=== PATIENT | female | born 1995 | race Caucasian/White ===

== ENCOUNTER 2018-03-02 09:30 | Emergency (ER) | payer MEDICAID ==
[~2018-03-02] VITALS: Ht 152.4 cm; Wt 69.0 kg
[2018-03-02 11:33] LABS: CLARITY URINE CLEAR (CLEAR); COLOR URINE ORANGE (YELLOW); KETONES URINE NEGATIVE (NEGATIVE); LEUKOCYTE ESTERASE URINE TRACE (NEGATIVE); NITRITE URINE NEGATIVE (NEGATIVE); OCCULT BLOOD URINE 3+ (NEGATIVE); PH URINE 6.5 (4.5-8.0); PROTEIN URINE TRACE (NEGATIVE); SPECIFIC GRAVITY URINE 1.017 (1.005-1.030); UROBILINOGEN URINE 0.2 E.U./dL (0.2-1.0)
[2018-03-02 12:40] LABS: BASOPHILS % 0.6 % (0.0-2.0); EOSINOPHILS % 1.8 % (0.0-5.0); HEMATOCRIT. 36.2 % (36.0-48.0); HEMOGLOBIN. 12.5 g/dL (12.0-16.0); MEAN CORPUSCULAR HEMOGLOBIN 30.3 pg (28.0-32.0); MEAN CORPUSCULAR VOLUME 87.7 fL (81.0-99.0); MEAN PLATELET VOLUME 7.9 fl (7.4-10.4); MONOCYTES % 4.8 % (2.0-8.0); NEUTROPHILS % 69.8 % (40.0-76.0); PLATELET 330 x1000/uL (130-400); RED BLOOD CELL COUNT 4.13 mill/uL (4.2-5.4); RED CELL DISTRIBUTION WIDTH 12.5 % (11.6-14.6)
[2018-03-02 12:45] LABS: CHLORIDE 107 mEq/L (98-107)
[2018-03-02] MEDS ORDERED: ACETAMINOPHEN 325MG TABLET PO ONE (12:45)
[2018-03-02 13:11] LABS: HCG SCREEN NEGATIVE
[2018-03-02 14:28] VITALS: BP 124/77
== END 2018-03-02 14:32 | disposition home or self-care (01) ==
LOC: ER 10:20
DX: R10.2 Pelvic and perineal pain (principal); N83.202 Unspecified ovarian cyst, left side; N93.9 Abnormal uterine and vaginal bleeding, unspecified; Z97.5 Presence of (intrauterine) contraceptive device; Z90.49 Acquired absence of other specified parts of digestive tract
CPT/HCPCS: 36415; 76830; 76856; 80053; 81003; 84703; 85025; 99285; Z7610

== ENCOUNTER 2018-12-30 00:34 | Emergency (ER) | payer MEDICAID ==
[~2018-12-30] VITALS: Ht 152.4 cm; Wt 78.0 kg
[2018-12-30 04:09] LABS: BASOPHILS % 0.9 % (0.0-2.0); EOSINOPHILS % 2.6 % (0.0-5.0); HEMATOCRIT. 37.6 % (36.0-48.0); HEMOGLOBIN. 12.9 g/dL (12.0-16.0); LYMPHOCYTES % 37.7 % (20.0-50.0); MEAN CORPUSCULAR HEMOGLOBIN 30.5 pg (28.0-32.0); MEAN CORPUSCULAR VOLUME 88.7 fL (81.0-99.0); MEAN PLATELET VOLUME 7.9 fl (7.4-10.4); MONOCYTES % 7.4 % (2.0-8.0); NEUTROPHILS % 51.4 % (40.0-76.0); PLATELET 345 x1000/uL (130-400); RED BLOOD CELL COUNT 4.25 mill/uL (4.2-5.4); RED CELL DISTRIBUTION WIDTH 13.2 % (11.6-14.6)
[2018-12-30 04:13] LABS: CHLORIDE 107 mEq/L (98-107)
[2018-12-30 04:24] LABS: B-HCG QUANTITATIVE 57 mIU/mL (<3)
[2018-12-30] MEDS ORDERED: ACETAMINOPHEN 500MG TABLET PO ONE (05:00)
[2018-12-30 07:23] VITALS: BP 133/78
== END 2018-12-30 07:26 | disposition home or self-care (01) ==
LOC: ER 00:34
DX: O20.0 Threatened abortion (principal); O26.91 Pregnancy related conditions, unspecified, first trimester; Z3A.01 Less than 8 weeks gestation of pregnancy; Z90.49 Acquired absence of other specified parts of digestive tract
CPT/HCPCS: 36415; 76801; 84702; 86850; 86900; 99284

== ENCOUNTER 2019-01-02 09:18 | Emergency (ER) | payer MEDICAID ==
[~2019-01-02] VITALS: Ht 152.4 cm; Wt 77.0 kg
[2019-01-02 09:40] VITALS: BP 139/93
== END 2019-01-02 11:30 | disposition home or self-care (01) ==
LOC: ER 09:54
DX: O03.9 Complete or unspecified spontaneous abortion without complication (principal); O26.899 Other specified pregnancy related conditions, unspecified trimester; Z90.49 Acquired absence of other specified parts of digestive tract
CPT/HCPCS: 36415; 84702; 99283